=== PATIENT | male | born 1960 | race Caucasian/White ===

== ENCOUNTER 2018-04-17 11:41 | Emergency (ER) | payer OTHER ==
[2018-04-17 11:56] VITALS: O2SAT 97
--- NOTE | 2018-04-17 12:17 | ERPHSYRPT ---
- History of Present Illness Time Seen by Provider: 04/17/18 12:08 Source: patient Exam Limitations: no limitations Patient Subjective Stated Complaint: pt has abcess to right groin area for 2 days now Triage Nursing Assessment: pt alert, walked in, resp easy. skin w/d/p. 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 He has expressed purulent material from it. He is now worried because he has a mild fever. He is driving from [place] to [place] and would like some antibiotics as he is driving. He has no doctor and has not seen one for 20 years. Timing/Duration: day(s) (3), gradual onset Quality: painful Severity: moderate Location: extremities (right thigh) Possible Causes: no cause identified Associated Symptoms: rash Allergies/Adverse Reactions: No Known Drug Allergies Allergy (Unverified 04/17/18 11:56) Hx Tetanus, Diphtheria Vaccination/Date Given: No Hx Influenza Vaccination/Date Given: No Hx Pneumococcal Vaccination/Date Given: No Immunizations Up to Date: No - Review of Systems Constitutional: Fever Eyes: No Symptoms Ears, Nose, & Throat: No Symptoms Respiratory: No Cough, No Dyspnea Cardiac: No Chest Pain, No Edema, No Syncope Abdominal/Gastrointestinal: No Abdominal Pain, No Nausea, No Vomiting, No Diarrhea Genitourinary Symptoms: No Dysuria Musculoskeletal: No Back Pain, No Neck Pain Skin: Cellulitis Neurological: No Dizziness, No Focal Weakness, No Sensory Changes Psychological: No Symptoms Endocrine: No Symptoms Hematologic/Lymphatic: No Symptoms Immunological/Allergic: No Symptoms All Other Systems: Reviewed and Negative - Past Medical History Pertinent Past Medical History: No - Past Surgical History Past Surgical History: Yes Musculoskeletal: Orthopedic Surgery Other Surgical History: hand - Social History Smoking Status: Former smoker Exposure to second hand smoke: No Drug Use: methamphetamines Patient Lives Alone: No - Nursing Vital Signs Nursing Vital Signs: Initial Vital Signs Temperature 100.0 F 04/17/18 11:50 Pulse Rate 97 H 04/17/18 11:50 Respiratory Rate 18 04/17/18 11:50 Blood Pressure 159/101 04/17/18 11:50 O2 Sat by Pulse Oximetry 97 04/17/18 11:50 Pain Scale Pain Intensity 10 - Physical Exam General Appearance: no apparent distress, alert Eye Exam: PERRL/EOMI, eyes nml inspection Ears, Nose, Throat Exam: normal ENT inspection, pharynx normal, moist mucous membranes Neck Exam: normal inspection, non-tender, supple, full range of motion Respiratory Exam: normal breath sounds, lungs clear, No respiratory distress Cardiovascular Exam: regular rate/rhythm, normal heart sounds Gastrointestinal/Abdomen Exam: soft, mass, No tenderness Rectal Exam: not done Back Exam: normal inspection, normal range of motion, No CVA tenderness, No vertebral tenderness Extremity Exam: normal inspection, normal range of motion Neurologic Exam: alert, oriented x 3, cooperative, normal mood/affect, sensation nml, No motor deficits Skin Exam: warm, rash (open abscess with clear drainage; surrounding erythema, tenderness) SpO2 Interpretation: normal SpO2: 97 Oxygen Delivery: Room Air - Departure Time of Disposition: 12:23 Departure Disposition: Home Clinical Impression: Abscess Condition: Stable Critical Care Time: No Referrals: DOCTOR,NO FAMILY [Primary Care Provider] - Additional Instructions: You have a draining abscess on your right thigh. Take clindamycin 300 mg 4 times a day for 10 days. Take Tylenol and ibuprofen as needed for pain and fever. Follow-up with your primary medical doctor as needed. Prescriptions: Clindamycin HCl 1 cap PO QID #40 capsule
[2018-04-17 12:33] VITALS: BP 144/82; PULSE 90
== END 2018-04-17 12:33 | disposition home or self-care (01) ==
LOC: ED 11:41
DX: L02.415 Cutaneous abscess of right lower limb (principal)
CPT/HCPCS: 99283